=== PATIENT | female | born 1940 | race Caucasian/White ===

== ENCOUNTER → 2017-06-15 | Outpatient (CLI) | payer OTHER ==
[~2017-06-15] MED LIST: ALPR-411 PO; ATEN50TA8 PO; ESTR1.252 PO; FEXO1TAB46 PO; LEVO100T PO; SIMV40TA2 PO
[2017-06-15 12:13] LABS: BASO % 0.4 %; BASO ABS # 0.02 K/uL (0-0.2); COMPLETE YES; HEMATOCRIT 42.1 % (37-47); IG% 0.2 %; LYMPH % 31.1 %; LYMPH ABS # 1.65 K/uL (1.2-3.4); MEAN CELL VOLUME 97.9 fL (80-100); MEAN CORPUSCULAR HEMOGLOBIN 32.3 pg (25-34); MEAN PLATELET VOLUME 10.9 fL (7.4-10.4); MONO % 9.4 %; NEUT % 55.9 %; PLATELET COUNT 258 K/uL (130-400)
[2017-06-15 12:46] LABS: ALT/SGPT 21 U/L (12-78); BLOOD UREA NITROGEN 10 mg/dl (7-18); BUN/CREATININE RATIO 14.3 (10-20); CALCIUM 9.2 mg/dl (8.5-10.1); CARBON DIOXIDE 28 mmol/L (21-32); CHLORIDE 108 mmol/L (98-107); CREATININE 0.67 mg/dl (0.60-1.20); GLUCOSE 82 mg/dl (70-99); SODIUM 140 mmol/L (136-145)
[2017-06-15 12:57] LABS: ALB/GLOB RATIO 0.9 (0.9-2); ALKALINE PHOSPHATASE 56 U/L (45-117); AST/SGOT 19 U/L (15-37)
[2017-06-15 13:01] LABS: LYME DISEASE AB IGG NEG (NEG); LYME DISEASE AB IGM NEG (NEG)
--- NOTE | 2017-07-13 09:23 | CODING QUERY MEDICAL NECESSITY ---
SUPPORTING DIAGNOSIS NEEDED A supporting diagnosis is required for the test/procedure performed on this patient in order for us to be reimbursed by the patient's insurance. Please provide a supporting diagnosis for the following test/procedure listed below next to the test name along with your signature. *If there is no additional diagnosis for this patient that would support the following test/procedure please document that below next to the test/procedure. Test(s)/Procedure(s) that require a supporting diagnosis: * VITAMIN D, 25-HYDROXY DIAGNOSIS: Provider Signature: Date: Thank you Gris Paredes [employer] Once completed, please kindly fax back to [phone] For questions please call [phone]
== END | disposition home or self-care (01) ==
LOC: C.LABPBG 10:32
PROVIDERS: ATTEND Internal Medicine Geriatric Medicine
DX: E03.9 Hypothyroidism, unspecified (principal); R53.83 Other fatigue

== ENCOUNTER → 2017-12-17 | Outpatient (CLI) | payer OTHER ==
[2017-12-17 16:47] LABS: BASO % 0.5 %; BASO ABS # 0.03 K/uL (0-0.2); EOS % 1.8 %; EOS ABS # 0.12 K/uL (0-0.5); HEMATOCRIT 40.2 % (37-47); HEMOGLOBIN 13.6 g/dL (12.0-16.0); LYMPH % 30.4 %; MEAN CELL VOLUME 97.3 fL (80-100); MEAN CORPUSCULAR HEMOGLOBIN 32.9 pg (25-34); MEAN CORPUSCULAR HGB CONC 33.8 g/dl (32-36); MEAN PLATELET VOLUME 11.1 fL (7.4-10.4); MONO % 7.8 %; MONO ABS # 0.51 K/uL (0.11-0.59); NEUT % 59.5 %; NEUT ABS # 3.92 K/uL (1.4-6.5); PLATELET COUNT 270 K/uL (130-400); RED CELL DISTRIBUTION WIDTH SD 45.9 fL (36.4-46.3); WHITE BLOOD COUNT 6.58 K/uL (4.8-10.8)
[2017-12-17 17:34] LABS: BLOOD UREA NITROGEN 13 mg/dl (7-18); CREATININE 0.77 mg/dl (0.60-1.20); GLUCOSE 107 mg/dl (70-99); POTASSIUM 4.1 mmol/L (3.5-5.1); SODIUM 137 mmol/L (136-145)
[2017-12-17 17:35] LABS: CALCIUM 8.6 mg/dl (8.5-10.1); CARBON DIOXIDE 27 mmol/L (21-32)
[2017-12-17 17:45] LABS: CHOLESTEROL 187 mg/dl (0-200); LDL CHOLESTEROL CALCULATED 79 mg/dl
== END | disposition home or self-care (01) ==
LOC: C.LABPBG 11:37
PROVIDERS: ATTEND Internal Medicine Geriatric Medicine
DX: E03.9 Hypothyroidism, unspecified (principal); E78.5 Hyperlipidemia, unspecified; M19.90 Unspecified osteoarthritis, unspecified site; R10.9 Unspecified abdominal pain

== ENCOUNTER → 2018-05-26 | Outpatient (CLI) | payer OTHER | END | disposition home or self-care (01) | LOC: C.LABSPEC 08:13 | PROVIDERS: ATTEND Nurse Practitioner Family | DX: J02.9 Acute pharyngitis, unspecified (principal) ==

== ENCOUNTER 2020-04-25 13:04 | Inpatient (IN) ==
[2020-04-25] MEDS ORDERED: SODIUM CHLORIDE 0.9% 1000ML 1,000 ML IV ONE (13:33)
[2020-04-25] MEDS ORDERED: ONDANSETRON INJ 2 MG/ML 2 ML VIAL IV STA (13:33)
--- NOTE | 2020-04-25 13:41 | Emergency Department Note ---
Impression & Plan Weakness, Diarrhea, Anaplasmosis, Thrombocytopenia ED Provider Note NAME: DUKE MILLAN AGE: 80 SEX: F : 1940 ARRIVES VIA: Walk-In INFORMANT: [Patient][family] ED PROVIDER(S): [Dani Augustine MD] CHIEF COMPLAINT: Weakness, diarrhea HISTORY OF PRESENT ILLNESS: The patient is an 80-year-old female who states that for 2.5 days, she has had diarrhea. She has no appetite. When she eats, everything comes through her like water. The patient states that she has no abdominal pain, she just feels like she does not want to eat. There has been some slight nausea, no vomiting. She has had a low-grade fever. There has been no cough or congestion. No chest pain. No urinary complaints. The patient did have some outpatient lab work through [facility]. She is not sure of the results. She presents to the ED today because she is concerned about dehydration. She states that she did have some pork a few days ago which may have been responsible for her symptoms although, no one else is sick who ate this same meal. REVIEW OF SYSTEMS: See HPI for pertinent positives and negatives. A total of ten systems were reviewed and were otherwise negative. PMHx/PSHx: See Below SOCIAL HISTORY: See Below. PHYSICAL EXAM: GENERAL: Patient is in no acute distress. HEENT: No acute trauma, normocephalic atraumatic, mucous membranes moist, no khari al congestion, no scleral icterus. NECK: No stridor, no adenopathy, no meningismus, trachea is midline. LUNGS: Clear to auscultation bilaterally, somewhat diminished breath sounds on the right, there is no wheezing, no rhonchi, no respiratory distress. HEART: Subtle systolic murmur, regular rate and rhythm. ABDOMEN: Soft, mildly tender in the lower abdomen bilaterally, bowel sounds positive, no hernias, no peritonitis. EXTREMITIES: No cyanosis or edema, full range of motion of all the joints wit hout pain or difficulty, no signs for acute trauma. NEUROLOGIC: Oriented x 3, no acute motor or sensory deficits, no focal weakness. SKIN: No rash, no jaundice, no diaphoresis. DIFFERENTIAL DIAGNOSIS: Appendicitis, infections, foodborne illness, viral illness, diverticulitis, colitis, dehydration, UTI, obstruction, mesenteric ischemia, aortic pathology, inflammatory bowel disease, renal colic, PUD, pancreatitis, biliary pathology, hernia, volvulus, constipation, as well as other pathologies. EMERGENCY DEPARTMENT COURSE/PROCEDURES: ECG: Indication was abdominal pain and weakness. The ECG shows a normal sinus rhythm with a rate of 96. There is no ST elevation, no PVCs. The QTc is 427. Continuous Cardiac Monitoring: An order was placed for continuous cardiac monitoring. The monitor shows a rate of 98 with normal sinus rhythm. MEDICAL DECISION MAKING: There is a lower white blood cell count at 3.77. Hemoglobin is normal. Platelet count was quite low at 36. There was a lower sodium at 130. No kidney failure. There were a few very subtle liver enzyme elevations. The patient did not have pancreatitis by her testing. Urinalysis shows what appears to be contamination. Chest film does not show pneumonia or CHF. There was no free air. Abdominal and pelvis CT does not show diverticulitis or colitis. There was no acute surgical process by CT scan. 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 The patient received IV saline. She was given IV doxycycline. She received IV Zofran. I was able to review some laboratory work which was done as an outpatient yesterday. Her platelet count was 69 yesterday. Lyme testing was equivocal. The patient has diarrhea, she is dehydrated. She feels weak. 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 Given her very low platelet count, given her age, given her diarrhea and difficulty with oral intake, I do think a hospital stay is warranted. IV fluids, IV doxycycline are indicated. She will need her platelet count followed. I did speak to the patient, I talked to the window caser. The on-call hospitalist has been consulted. Past Med/Surg History Medical History Bilateral cataracts (Inactive) Dyslipidemia History of cataract Hypertension (Chronic) Hypothyroidism (Chronic) Insomnia Previously prescribed alprazolam for many years. Working towards taper and alternative treatment Surgical History History of laparoscopy diagnostic History of surgery retropubic urethral suspension History of total abdominal hysterectomy and bilateral salpingo-oophorectomy Hx of section S/P cataract surgery right eye- 05/19/16, left eye- 07/21/16 S/P colonoscopy Social History Smoking Status: Former smoker Hx Alcohol Use: Yes Hx Substance Use: No Preferred Language: Togolese Communication Ability: Effective marital status: / current occupational status: retired Feels Safe at Home: Yes Dental Care, Regularly: Yes Seatbelt Use: always Allergies Allergies Allergy/AdvReac Type Severity Reaction Status Date / Time carrot Allergy Unknown GI UPSET Verified 04/25/20 14:50 chocolate flavor Allergy Unknown RASH Verified 04/25/20 14:50 NSAIDS (Non-Steroidal Allergy Unknown GI BLEED, Verified 04/25/20 14:50 Anti-Inflamma SWELLING, ANAPHYLAXIS Penicillins Allergy Unknown SWELLING, Verified 04/25/20 14:50 RASH azithromycin AdvReac Intermediate Heart Unverified 04/25/20 14:55 palpitations aspirin AdvReac Unknown GI BLEED Verified 04/25/20 14:50 oxycodone AdvReac Unknown "FELT Verified 04/25/20 14:50 THINGS CRAWLING UP MY ARMS" Home Meds Home Medications Medication Instructions Recorded Confirmed cholecalciferol (vitamin D3) 10 400 units PO QAM 05/12/19 04/25/20 mcg (400 unit) capsule coenzyme Q10 10 mg capsule 10 mg PO QAM cap 05/12/19 04/25/20 latanoprost (PF) 0.005 % eye drops 1 drops OPB PM ml 05/12/19 04/25/20 acetaminophen [Tylenol Extra 250 mg PO Q6H PRN 04/25/20 04/25/20 Strength] conjugated estrogens [Premarin] 0.75 mg PO QAM 04/25/20 04/25/20 fexofenadine [Mary Allergy] 180 mg PO DIRECTED PRN 04/25/20 04/25/20 levothyroxine 112 mcg PO QAM 04/25/20 04/25/20 Previous Rx's Medication Instructions Recorded atenolol 50 mg tablet 50 mg PO BID #60 tab 09/22/19 alprazolam 0.5 mg tablet 0.5 mg PO QPM PRN #30 tab 01/03/20 simvastatin 20 mg tablet 20 mg PO QPM #30 tab 04/02/20 Results & Data (ED) Vital Signs Vital Signs - 24 hr 04/25/20 13:13 04/25/20 13:50 04/25/20 14:20 Temperature 37.1 C Temperature Source Oral Pulse Rate 96 H 99 H Pulse Rate [Left Finger] 97 H Pulse Rhythm Regular Pulse Strength Normal Respiratory Rate 18 20 Respiratory Effort / Characteristics Non-Labored Spontaneous Respiratory Depth Normal Respiratory Pattern Regular Blood Pressure 99/63 L Blood Pressure [Left Arm] 134/66 Blood Pressure Mean 75 Blood Pressure Mean [Left Arm] 88 Blood Pressure Position Sitting Pulse Oximetry 95 93 Oxygen Delivery Method Room Air Room Air Sepsis Recent Fever Within 48 Hours No Sepsis New/Unexplained Change in Mental Status No Sepsis Action Taken by Nursing No Action Required 04/25/20 14:30 04/25/20 14:41 04/25/20 14:46 Temperature Temperature Source Pulse Rate 99 H 99 H Pulse Rate [Left Finger] 99 H Pulse Rhythm Pulse Strength Respiratory Rate 20 Respiratory Effort / Characteristics Respiratory Depth Respiratory Pattern Blood Pressure Blood Pressure [Left Arm] 128/75 Blood Pressure Mean Blood Pressure Mean [Left Arm] 92 Blood Pressure Position Pulse Oximetry 90 Oxygen Delivery Method Room Air Sepsis Recent Fever Within 48 Hours Sepsis New/Unexplained Change in Mental Status Sepsis Action Taken by Nursing 04/25/20 15:13 04/25/20 15:21 04/25/20 15:30 Temperature Temperature Source Pulse Rate 99 H 99 H 98 H Pulse Rate [Left Finger] Pulse Rhythm Pulse Strength Respiratory Rate Respiratory Effort / Characteristics Respiratory Depth Respiratory Pattern Blood Pressure Blood Pressure [Left Arm] Blood Pressure Mean Blood Pressure Mean [Left Arm] Blood Pressure Position Pulse Oximetry Oxygen Delivery Method Sepsis Recent Fever Within 48 Hours Sepsis New/Unexplained Change in Mental Status Sepsis Action Taken by Nursing 04/25/20 15:40 04/25/20 15:51 04/25/20 16:00 Temperature Temperature Source Pulse Rate 98 H 97 H 98 H Pulse Rate [Left Finger] Pulse Rhythm Pulse Strength Respiratory Rate 24 Respiratory Effort / Characteristics Respiratory Depth Respiratory Pattern Blood Pressure 141/64 H Blood Pressure [Left Arm] Blood Pressure Mean 90 Blood Pressure Mean [Left Arm] Blood Pressure Position Pulse Oximetry Oxygen Delivery Method Sepsis Recent Fever Within 48 Hours Sepsis New/Unexplained Change in Mental Status Sepsis Action Taken by Nursing 04/25/20 16:10 04/25/20 16:21 Temperature Temperature Source Pulse Rate 100 H 98 H Pulse Rate [Left Finger] Pulse Rhythm Pulse Strength Respiratory Rate 20 17 Respiratory Effort / Characteristics Respiratory Depth Respiratory Pattern Blood Pressure Blood Pressure [Left Arm] Blood Pressure Mean Blood Pressure Mean [Left Arm] Blood Pressure Position Pulse Oximetry Oxygen Delivery Method Sepsis Recent Fever Within 48 Hours Sepsis New/Unexplained Change in Mental Status Sepsis Action Taken by Custodial Medications Current Medication List: was personally reviewed by me Laboratory Data Attestation: I reviewed the patient's lab results. Result diagrams: 04/25/20 13:45 04/25/20 13:45 Lab Results 04/25/20 04/25/20 04/25/20 Range/Units 13:45 13:45 13:45 WBC 3.77 L (4.8-10.8) K/uL RBC 3.79 L (4.2-5.4) M/uL Hgb 12.1 (12.0-16.0) g/dL Hct 34.8 L (37-47) % MCV 91.8 (80-100) fL MCH 31.9 (25-34) pg MCHC 34.8 (32-36) g/dL RDW Std Deviation 50.1 H (36.4-46.3) fL RDW Coeff of Sandra 14.7 H (11.5-14.5) % Plt Count 36 L (130-400) K/uL MPV 11.7 H (7.4-10.4) fL Immature Gran % (Auto) 1.6 % Neut % (Auto) 56.5 % Lymph % (Auto) 28.1 % Preble % (Auto) 11.7 % Eos % (Auto) 0.0 % Baso % (Auto) 2.1 % Neut # (Auto) 2.13 (1.4-6.5) K/uL Lymph # (Auto) 1.06 L (1.2-3.4) K/uL Preble # (Auto) 0.44 (0.11-0.59) K/uL Eos # (Auto) 0.00 (0-0.5) K/uL Baso # (Auto) 0.08 (0-0.2) K/uL Immature Gran # (Auto) 0.06 H (0.00-0.02) K/uL Platelet Estimate Decreased L (Normal) Sodium 130 L (136-145) mmol/L Potassium 4.1 (3.5-5.1) mmol/L Chloride 97 L (98-107) mmol/L Carbon Dioxide 25 (21-32) mmol/L Anion Gap 8.0 (3-11) BUN 26 H (7-18) mg/dl Creatinine 1.06 (0.6-1.2) mg/dl Est Cr Clr Drug Dosing 36.7 ml/min Est GFR ( Amer) 57.0 Est GFR (Non-Af Amer) 49.2 BUN/Creatinine Ratio 24.7 H (10-20) Glucose 137 H (70-99) mg/dl Calcium 8.7 (8.5-10.1) mg/dl Total Bilirubin 1.1 H (0.2-1) mg/dl AST 48 H (15-37) U/L ALT 37 (12-78) U/L Alkaline Phosphatase 51 (45-117) U/L Troponin I < 0.015 (0-0.045) ng/ml Total Protein 6.8 (6.4-8.2) gm/dl Albumin 2.6 L (3.4-5.0) gm/dl Globulin 4.2 H (2.5-4.0) gm/dl Albumin/Globulin Ratio 0.6 L (0.9-2) Lipase 245 (73-393) U/L Urine Color Urine Appearance (Clear) Urine pH (4.5-7.5) Ur Specific Kila (1.000-1.030) Urine Protein (Negative) Urine Glucose (UA) (Negative) Urine Ketones (Negative) Urine Blood (Negative) Urine Nitrite (Negative) Urine Bilirubin (Negative) Urine Urobilinogen (Negative) Ur Leukocyte Esterase (Negative) Urine WBC (Auto) (0-5) /hpf Urine RBC (Auto) (0-4) /hpf U Hyaline Cast (Auto) (0-5) /lpf U Epithel Cells (Auto) (0-5) /lpf Urine Bacteria (Auto) (Negative) Ur Renal Epithelial Cell (0-5) /lpf Granular Casts (0) /lpf Urine Yeast Anaplasma Smear A. phagocytophilum DNA Cancelled Anaplasma Comment 04/25/20 04/25/20 Range/Units 13:45 15:03 WBC (4.8-10.8) K/uL RBC (4.2-5.4) M/uL Hgb (12.0-16.0) g/dL Hct (37-47) % MCV (80-100) fL MCH (25-34) pg MCHC (32-36) g/dL RDW Std Deviation (36.4-46.3) fL RDW Coeff of Sandra (11.5-14.5) % Plt Count (130-400) K/uL MPV (7.4-10.4) fL Immature Gran % (Auto) % Neut % (Auto) % Lymph % (Auto) % Preble % (Auto) % Eos % (Auto) % Baso % (Auto) % Neut # (Auto) (1.4-6.5) K/uL Lymph # (Auto) (1.2-3.4) K/uL Preble # (Auto) (0.11-0.59) K/uL Eos # (Auto) (0-0.5) K/uL Baso # (Auto) (0-0.2) K/uL Immature Gran # (Auto) (0.00-0.02) K/uL Platelet Estimate (Normal) Sodium (136-145) mmol/L Potassium (3.5-5.1) mmol/L Chloride (98-107) mmol/L Carbon Dioxide (21-32) mmol/L Anion Gap (3-11) BUN (7-18) mg/dl Creatinine (0.6-1.2) mg/dl Est Cr Clr Drug Dosing ml/min Est GFR ( Amer) Est GFR (Non-Af Amer) BUN/Creatinine Ratio (10-20) Glucose (70-99) mg/dl Calcium (8.5-10.1) mg/dl Total Bilirubin (0.2-1) mg/dl AST (15-37) U/L ALT (12-78) U/L Alkaline Phosphatase (45-117) U/L Troponin I (0-0.045) ng/ml Total Protein (6.4-8.2) gm/dl Albumin (3.4-5.0) gm/dl Globulin (2.5-4.0) gm/dl Albumin/Globulin Ratio (0.9-2) Lipase (73-393) U/L Urine Color Dark Yellow Urine Appearance Cloudy A (Clear) Urine pH 5.0 (4.5-7.5) Ur Specific Kila 1.027 (1.000-1.030) Urine Protein 2+ H (Negative) Urine Glucose (UA) Negative (Negative) Urine Ketones Trace H (Negative) Urine Blood Trace H (Negative) Urine Nitrite Negative (Negative) Urine Bilirubin Negative (Negative) Urine Urobilinogen Negative (Negative) Ur Leukocyte Esterase Negative (Negative) Urine WBC (Auto) 5-10 H (0-5) /hpf Urine RBC (Auto) 0-4 (0-4) /hpf U Hyaline Cast (Auto) 10-30 H (0-5) /lpf U Epithel Cells (Auto) >30 H (0-5) /lpf Urine Bacteria (Auto) 1+ H (Negative) Ur Renal Epithelial Cell 0-5 (0-5) /lpf Granular Casts 5-10 H (0) /lpf Urine Yeast Not Reportable Anaplasma Smear See Comment A A. phagocytophilum DNA Anaplasma Comment Pos for Anaplasma Administered Medications Doxycycline Hyclate 100 mg/ (Dextrose) 110 mls @ 50 mls/hr IV NOW STA Stop: 04/25/20 18:17 Last Admin: 04/25/20 16:30 Dose: 50 mls/hr Documented by: [id number] Ioversol (Optiray 320 100ml) 94 ml IV ONCE PRN PRN Reason: Interaction Checking Stop: 04/29/20 15:08 Last Admin: 04/25/20 15:10 Dose: 94 ml Documented by: [id number] Discontinued Medications Sodium Chloride (Nss 1000ml) 1,000 mls @ 999 mls/hr IV .Q1H1M ONE Stop: 04/25/20 14:33 Last Infusion: 04/25/20 14:49 Dose: 0 mls/hr Documented by: [id number] Admin: 04/25/20 13:49 Dose: 999 mls/hr Documented by: [id number] Ondansetron HCl (Zofran) 4 mg IV NOW STA Stop: 04/25/20 13:34 Last Admin: 04/25/20 13:49 Dose: 4 mg Documented by: [id number] Imaging Data Radiologist's Impression: SINGLE VIEW CHEST CLINICAL HISTORY: Generalized abdominal pain. FINDINGS: An AP, portable, upright chest radiograph is compared to study dated 08/11/2016 and correlated with chest CT dated 09/30/2016. The examination is degraded by portable technique and patient rotation. The cardiomediastinal silhouette is unremarkable. Chronic interstitial thickening is similar to previous. Airspace opacities are noted at the left lung base. No large pleural effusion or pneumothorax is seen. The skeletal structures are osteopenic. The bony thorax is grossly intact. IMPRESSION: Airspace opacities at the left lung base likely represent atelectasis. Clinical correlation will be required. ABDOMEN AND PELVIS CT WITH IV CONTRAST CT DOSE: 277.54 mGy.cm HISTORY: Acute lower abdominal and pelvic pain poss colitis, or divertic TECHNIQUE: Multiaxial CT images of the abdomen and pelvis were performed following the IV administration of 94 cc of Optiray 320, A dose lowering technique was utilized adhering to the principles of ALARA. COMPARISON STUDY: CT abdomen and pelvis 09/20/2016 FINDINGS: The imaged inferior cardiac chambers are unremarkable. Dependent subsegmental bibasilar atelectasis with subpleural reticulation suggestive of f ibrosis. Bibasilar bronchial wall thickening. No pneumatosis or pneumoperitoneum. The spleen is mildly enlarged, 13.2 cm. Indeterminate 7 mm cystic focus of the pancreatic head, image 184 series 3. Adrenal glands, gallbladder and liver are unremarkable. Patency of the hepatic and portal veins. Mild nonspecific bilateral perinephric stranding. 5 mm hypodensity of the interpolar left kidney is suggestive of a probable cyst. 4 mm hypodensity of the superior pole left kidney is too small to characterize. No ureteral calculi or obstructive uropathy. Venous calcifications are noted in the retroperitoneum and pelvis. Partial distention of the urinary bladder. Hysterectomy. Calcified plaque of the abdominal aorta without aneurysm. No adenopathy. No bowel obstruction or bowel wall thickening. There are a few loops of small bowel air-fluid levels the lower abdomen and pelvis, likely physiologic. Colonic diverticulosis without acute diverticulitis. The appendix is not diagnostically visualized, reportedly absent. No ascites or mesenteric stranding. Tiny fat filled periumbilical hernia. Demineralized appearance of the bones. Degenerative changes of the spine, pelvis and hips. Lumbar levoscoliosis. 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 IMPRESSION: 1. Small bowel air-fluid levels within the abdomen and pelvis are likely physiologic. A mild enteritis could appear similarly 2. No bowel obstruction or bowel wall thickening. 3. Colonic diverticulosis without acute diverticulitis. 4. Additional findings as above. Blood Pressure Blood Pressure Findings: Elevated blood pressure Blood Pressure Disposition: further management by hospitalist Discharge Plan Visit Data Chief Complaint: GI Assessment Stated Complaint: FEVER, DIZZINESS, VOMITING ED Provider: Dani Augustine Discharge Problem: Weakness, Diarrhea, Anaplasmosis, Thrombocytopenia Patient Disposition: Admitted As Inpatient Condition: Fair Forms Stand Alone Forms: [facility] [place] [facility] Prescriptions Prescriptions: No Action atenolol 50 mg tablet 50 mg PO BID Qty: 60 RF: 5 alprazolam 0.5 mg tablet 0.5 mg PO QPM PRN (Reason: anxiety) Qty: 30 RF: 3 simvastatin 20 mg tablet 20 mg PO QPM Qty: 30 RF: 1 coenzyme Q10 [Co Q-10] 10 mg capsule 10 mg PO QAM RF: 0 cholecalciferol (vitamin D3) 400 unit capsule 400 units PO QAM RF: 0 latanoprost (PF) 0.005 % drops 1 drops OPB PM RF: 0 fexofenadine [Mary Allergy] 180 mg tablet 180 mg PO DIRECTED PRN (Reason: allergies) RF: 0 Premarin 1.25 mg tablet 0.75 mg PO QAM RF: 0 levothyroxine 112 mcg capsule 112 mcg PO QAM RF: 0 acetaminophen [Tylenol Extra Strength] 500 mg Tablet 250 mg PO Q6H PRN (Reason: Pain) RF: 0 Referrals Referrals: Chaz Delgado DO [Primary Care Provider] - Discharge Problem: Diarrhea Qualifiers: Diarrhea type: unspecified type Qualified Code(s): R19.7 - Diarrhea, unspecified
--- NOTE | 2020-04-25 14:10 | XRay Report ---
SINGLE VIEW CHEST CLINICAL HISTORY: Generalized abdominal pain. FINDINGS: An AP, portable, upright chest radiograph is compared to study dated 08/11/2016 and correlat ed with chest CT dated 09/30/2016. The examination is degraded by portable technique and patient rota tion. The cardiomediastinal silhouette is unremarkable. Chronic interstitial thickening is similar to previous. Airspace opacities are noted at the left lung base. No large pleural effusion or pneumot horax is seen. The skeletal structures are osteopenic. The bony thorax is grossly intact. IMPRESSION: Airspace opacities at the left lung base likely represent atelectasis. Clinical correlati on will be required. ACT 112: Negative or not required by law. Electronically signed by: Dani Velasquez M.D. 04/25/2020 2:09 PM
[2020-04-25 14:17] LABS: Alanine Aminotransferase 37 U/L (12-78); Albumin Level 2.6 gm/dl (3.4-5.0); Aspartate Aminotransferase 48 U/L (15-37); BUN Creatinine Ratio 24.7 (10-20); Blood Urea Nitrogen 26 mg/dl (7-18); Calcium 8.7 mg/dl (8.5-10.1); Carbon Dioxide 25 mmol/L (21-32); Chloride 97 mmol/L (98-107); Creatinine Clr Calc Pharmacy 36.7 ml/min; Est GFR (Non-African American) 49.2; Glucose 137 mg/dl (70-99); Lipase 245 U/L (73-393); Potassium 4.1 mmol/L (3.5-5.1); Sodium 130 mmol/L (136-145)
[2020-04-25 14:21] LABS: Albumin Globulin Ratio 0.6 (0.9-2); Alkaline Phosphatase 51 U/L (45-117); Bilirubin,Total 1.1 mg/dl (0.2-1); Globulin 4.2 gm/dl (2.5-4.0); Total Protein 6.8 gm/dl (6.4-8.2); Troponin I < 0.015 ng/ml (0-0.045)
[2020-04-25 14:26] LABS: Basophils # (auto) 0.08 K/uL (0-0.2); Basophils % (auto) 2.1 %; Hematocrit (blood only) 34.8 % (37-47); Hemoglobin 12.1 g/dL (12.0-16.0); Immature Granulocytes # (auto) 0.06 K/uL (0.00-0.02); Immature Granulocytes % (auto) 1.6 %; Lymphocytes # (auto) 1.06 K/uL (1.2-3.4); Lymphocytes % (auto) 28.1 %; Mean Corpuscular Hemoglobin 31.9 pg (25-34); Mean Corpuscular Hgb Conc 34.8 g/dL (32-36); Mean Corpuscular Volume 91.8 fL (80-100); Mean Platelet Volume 11.7 fL (7.4-10.4); Monocytes # (auto) 0.44 K/uL (0.11-0.59); Monocytes % (auto) 11.7 %; Neutrophils # (auto) 2.13 K/uL (1.4-6.5); Neutrophils % (auto) 56.5 %; Platelet Count 36 K/uL (130-400); Platelet Estimate Decreased (Normal); RDW Coefficient of Variation 14.7 % (11.5-14.5); RDW Standard Deviation 50.1 fL (36.4-46.3); Red Blood Count 3.79 M/uL (4.2-5.4); White Blood Count 3.77 K/uL (4.8-10.8)
[2020-04-25] MEDS ORDERED: IOVERSOL 100ml IV PRN (15:09)
[2020-04-25 15:14] LABS: Appearance Urine Cloudy (Clear); Bacteria Urine Automated 1+ (Negative); Bilirubin Urine Negative (Negative); Blood Urine Trace (Negative); Color Urine Dark Yellow; Epithelial Cell Urine Auto >30 /lpf (0-5); Glucose Urine UA Negative (Negative); Ketones Urine Trace (Negative); Leukocyte Esterase Urine Negative (Negative); Nitrite Urine Negative (Negative); Protein Urine 2+ (Negative); RBC Urine Automated 0-4 /hpf (0-4); Specific Gravity Urine 1.027 (1.000-1.030); Urobilinogen Urine Negative (Negative)
--- NOTE | 2020-04-25 15:23 | CT Scan Report ---
ABDOMEN AND PELVIS CT WITH IV CONTRAST CT DOSE: 277.54 mGy.cm HISTORY: Acute lower abdominal and pelvic pain poss colitis, or divertic TECHNIQUE: Multiaxial CT images of the abdomen and pelvis were performed following the IV administrat ion of 94 cc of Optiray 320, A dose lowering technique was utilized adhering to the principles of AL NIKKI. COMPARISON STUDY: CT abdomen and pelvis 09/20/2016 FINDINGS: The imaged inferior cardiac chambers are unremarkable. Dependent subsegmental bibasilar ate lectasis with subpleural reticulation suggestive of fibrosis. Bibasilar bronchial wall thickening. No pneumatosis or pneumoperitoneum. The spleen is mildly enlarged, 13.2 cm. Indeterminate 7 mm cystic f ocus of the pancreatic head, image 184 series 3. Adrenal glands, gallbladder and liver are unremarkab le. Patency of the hepatic and portal veins. Mild nonspecific bilateral perinephric stranding. 5 mm hypodensity of the interpolar left kidney is s uggestive of a probable cyst. 4 mm hypodensity of the superior pole left kidney is too small to toña cterize. No ureteral calculi or obstructive uropathy. Venous calcifications are noted in the retroper itoneum and pelvis. Partial distention of the urinary bladder. Hysterectomy. Calcified plaque of the abdominal aorta without aneurysm. No adenopathy. No bowel obstruction or bowel wall thickening. There are a few loops of small bowel air-fluid levels the lower abdomen and pelvis, likely physiologic. Colonic diverticulosis without acute diverticulitis . The appendix is not diagnostically visualized, reportedly absent. No ascites or mesenteric strandin g. Tiny fat filled periumbilical hernia. Demineralized appearance of the bones. Degenerative changes of the spine, pelvis and hips. Lumbar levoscoliosis. Severe osteoarthritis of the left femoral acetab ular joint with prominent subcortical cysts and equivocal avascular necrosis without articular collap se. IMPRESSION: 1. Small bowel air-fluid levels within the abdomen and pelvis are likely physiologic. A mild enteriti s could appear similarly 2. No bowel obstruction or bowel wall thickening. 3. Colonic diverticulosis without acute diverticulitis. 4. Additional findings as above. ACT 112: Negative or not required by law. The above report was generated using voice recognition software. It may contain grammatical, syntax o r spelling errors. Electronically signed by: Leif Duval M.D. 04/25/2020 3:21 PM
[2020-04-25 15:33] LABS: Renal Epithelial Cells Urine 0-5 /lpf (0-5)
[2020-04-25] MEDS ORDERED: DOXYCYCLINE HYCLATE 100 MG in DEXTROSE 5% 100 ML IV STA (16:06)
[2020-04-25 16:08] LABS: Anaplasmosis Smear(Rpt to DOH) Pos for Anaplasma
--- NOTE | 2020-04-25 17:52 | History & Physical Report ---
Date of Service April 25, 2020 Assessment & Plan (1) Anaplasmosis: Positive Anaplasma smear Continue IV doxycycline 100 mg twice daily, can likely switch to p.o. tomorrow if tolerating eating well Retest for lyme Abx as suspect this caused her original fevers although would not manager change may give patient better expectation on recovery (much increased risk of longer term symptoms with lyme) (2) Diarrhea: No need to test for C. difficile given enteritis noted on CT without colitis Stool culture pending although suspect this is due to anaplasmosis as above. (3) Thrombocytopenia: secondary to anaplasmosis as above. Trend CBC, no specific treatment at this time but need for monitor for bleeding (4) Hypothyroidism: TSH with AM labs Continue levothyroxine 112 mcg PO daily (5) Hypertension: Continue atenolol - she missed her dose this morning which may explain her HR and hypertension currently. Restart usual atenolol dosing tonight (6) DVT prophylaxis: No chemical prophylaxis due to thrombocytopenia SCDs Admission and Anticipated Discharge Date Admission Date: 04/25/2020 Anticipated date of discharge: 04/27/20 History of Present Illness Chief Complaint: Fevers, chills, myalgias Primary Care Provider: Chaz Delgado DO Sierra Pérez is an 80 year old female who presents to the ER with fevers, chills, myalgias, fatigue and generalized myalgias. Initially she had similar symptoms which lasted for 5 days 3 weeks ago but without any URI symptoms or diarrhea. On the she went to [facility] through in [place] and had a lyme test which she tells me was negative. She never developed any rashes. COVID-19 testing was negative. Her symptoms gradually improved over 5 days although she remained very fatigued and was generally weak. 3 days ago her fevers returned and she started having diarrhea with some watery stools. In the ER here she was thrombocytopenic and had elevated AST and was appropriately suspected to have anaplasmosis with a subsequently positive smear for anaplasmosis. Started on IV doxycycline. Given degree of thrombocytopenia, concern for PO absorption with diarrhea and patient not having adequate oral intake she was referred to the medicine team for admission. Allergies Allergy/AdvReac Type Severity Reaction Status Date / Time carrot Allergy Unknown GI UPSET Verified 04/25/20 14:50 chocolate flavor Allergy Unknown RASH Verified 04/25/20 14:50 NSAIDS (Non-Steroidal Allergy Unknown GI BLEED, Verified 04/25/20 14:50 Anti-Inflamma SWELLING, ANAPHYLAXIS Penicillins Allergy Unknown SWELLING, Verified 04/25/20 14:50 RASH azithromycin AdvReac Intermediate Heart Unverified 04/25/20 14:55 palpitations aspirin AdvReac Unknown GI BLEED Verified 04/25/20 14:50 oxycodone AdvReac Unknown "FELT Verified 04/25/20 14:50 THINGS CRAWLING UP MY ARMS" Home Medications Home Medications Medication Instructions Recorded Confirmed Type cholecalciferol (vitamin D3) 10 400 units PO QAM 05/12/19 04/25/20 History mcg (400 unit) capsule coenzyme Q10 10 mg capsule 10 mg PO QAM cap 05/12/19 04/25/20 History latanoprost (PF) 0.005 % eye drops 1 drops OPB PM ml 05/12/19 04/25/20 History atenolol 50 mg tablet 50 mg PO BID #60 tab 09/22/19 04/25/20 Rx alprazolam 0.5 mg tablet 0.5 mg PO QPM PRN #30 tab 01/03/20 04/25/20 Rx simvastatin 20 mg tablet 20 mg PO QPM #30 tab 04/02/20 04/25/20 Rx acetaminophen [Tylenol Extra 250 mg PO Q6H PRN 04/25/20 04/25/20 History Strength] conjugated estrogens [Premarin] 0.75 mg PO QAM 04/25/20 04/25/20 History fexofenadine [Mary Allergy] 180 mg PO DIRECTED PRN 04/25/20 04/25/20 History levothyroxine 112 mcg PO QAM 04/25/20 04/25/20 History Past Med/Surg History Medical History Bilateral cataracts (Inactive) Dyslipidemia History of cataract Hypertension (Chronic) Hypothyroidism (Chronic) Insomnia Previously prescribed alprazolam for many years. Working towards taper and alternative treatment Surgical History History of laparoscopy diagnostic History of surgery retropubic urethral suspension History of total abdominal hysterectomy and bilateral salpingo-oophorectomy Hx of section S/P cataract surgery right eye- 05/19/16, left eye- 07/21/16 S/P colonoscopy Social History Smoking Status: Never smoker Hx Alcohol Use: No Hx Substance Use: No Preferred Language: Martiniquais Communication Ability: Effective Patient Services Representative Required: No Beliefs That Will Affect Care: Scientology Scientology Beliefs: Zoroastrian marital status: / Current Living Situation: Family Current Living Situation Comment: son is living with her at this time current occupational status: retired Other Information That Helps Us Care for You: No Feels Safe at Home: Yes Safety Concerns: Feels Safe At This Time Dental Care, Regularly: Yes Seatbelt Use: always Review of Systems Review of Systems: All systems reviewed & are unremarkable except as noted in HPI & below Physical Exam Constitutional: well developed and + frail appearing; + not well nourished and no acute distress Eyes: PERRL, conjunctivae normal, anicteric sclerae ENMT: external ear and nose normal, oropharynx normal Neck: trachea midline, no thyromegaly Respiratory: normal respiratory effort, lungs clear to auscultation Cardiovascular: Rate/Rhythm: regular rhythm and + tachycardic Heart Sounds: no murmur Extremities: normal capillary refill; no calf tenderness and no pedal edema Gastrointestinal (Abdomen): normal bowel sounds, soft, nontender, no hepatosplenomegaly Musculoskeletal: no cyanosis or clubbing, extremities motor strength 5/5 Skin: no rashes, warm and dry Neurologic: moves all extremities and awake; not confused Psychiatric: A+Ox3, euthymic affect Genitourinary: no CVA tenderness Lymphatic: no cervical or axillary lymphadenopathy Results & Data Results & Data ([facility]) Vital Signs (Past 12 Hours) Vital Signs Temp Pulse Pulse Resp BP BP Pulse Ox 04/25/20 16:21 98 H 17 04/25/20 16:10 100 H 20 04/25/20 16:00 98 H 24 141/64 H 04/25/20 15:51 97 H 04/25/20 15:40 98 H 04/25/20 15:30 98 H 04/25/20 15:21 99 H 04/25/20 15:13 99 H 04/25/20 14:46 99 H 20 128/75 90 04/25/20 14:41 99 H 04/25/20 14:30 99 H 04/25/20 14:20 99 H 04/25/20 13:50 97 H 20 134/66 93 04/25/20 13:13 37.1 C 96 H 18 99/63 L 95 Diagnostic Findings SINGLE VIEW CHEST IMPRESSION: Airspace opacities at the left lung base likely represent atelectasis. Clinical correlation will be required. ECG Indication: other Rate (beats per minute): 96 Rhythm: normal sinus Comparison ECG Date: from (09/20/2016) Change: no significant change Code Status & VTE Plan Code Status Full VTE Prophylaxis Plan VTE Prophylaxis will be ordered: Yes Reason for no VTE drug order: Contraindicated PG Care Time/CCT Total # of Minutes Spent Total Time Spent with Patient: Total time spent is greater than 50% in coordination of care (as documented) at patient's floor/unit and/or counseling patient: Coding Level of Care Code 14242 Initial Inpt Care Lvl 3 Diagnoses Anaplasmosis A77.49 Diarrhea R19.7 Diarrhea type: unspecified type Thrombocytopenia D69.6 Hypothyroidism E03.9 Hypertension I10 DVT prophylaxis Z29.9 (1) Diarrhea Diarrhea type: unspecified type Qualified Code(s): R19.7 - Diarrhea, unspecified
[2020-04-25] MEDS ORDERED: ACETAMINOPHEN 500 MG TAB PO PRN (19:18)
[2020-04-25] MEDS ORDERED: ALPRAZolam 0.25 MG TABLET PO PRN (19:18)
[2020-04-25] MEDS ORDERED: FEXOFENADINE HCL 180 MG TAB PO PRN (19:18)
[2020-04-25] MEDS: ACETAMINOPHEN 325 MG TAB PO PRN (19:53)
[2020-04-25] MEDS: SODIUM CHLORIDE 0.9% 1000ML 1,000 ML IV SCH (19:54)
[2020-04-25] MEDS: ATENOLOL 50 MG TABLET PO SCH (20:14)
[2020-04-25] MEDS: LATANOPROST 0.005% OP SOLN 2.5 ML BTL OPB SCH (20:14)
[2020-04-25 20:53] LABS: Lyme Ab IgG w/WB Rflx Negative (Negative)
[2020-04-25] MEDS ORDERED: SIMVASTATIN 20 MG TAB PO SCH (21:00)
[2020-04-25] MEDS ORDERED: LATANOPROST 0.005% OP SOLN 2.5 ML BTL OPB SCH (21:00)
[2020-04-25 21:13] LABS: Lyme Ab IgM w/WB Rflx Positive (Negative)
--- NOTE | 2020-04-25 23:23 | Electrocardiogram Report ---
Test Reason : Blood Pressure : / mmHG Vent. Rate : 096 BPM Atrial Rate : 096 BPM P-R Int : 168 ms QRS Dur : 082 ms QT Int : 338 ms P-R-T Axes : 022 038 033 degrees QTc Int : 427 ms Normal sinus rhythm Normal ECG When compared with ECG of 20-SEP-2016 11:36, No significant change was found Confirmed by Rajendra Valero ([id number]) on 04/25/2020 11:23:24 PM Referred By: REFERRED SELF Confirmed By:Rajendra Valero
[2020-04-26] MEDS ORDERED: DOXYCYCLINE HYCLATE 100 MG in DEXTROSE 5% 100 ML IV SCH (04:00)
[2020-04-26] MEDS: SODIUM CHLORIDE 0.9% 1000ML 1,000 ML IV SCH ×2 (05:15→15:24)
[2020-04-26 06:31] LABS: Prothrombin Time 10.8 Seconds (9.0-12.0)
[2020-04-26 06:39] LABS: Hematocrit (blood only) 31.3 % (37-47); Hemoglobin 10.8 g/dL (12.0-16.0); Mean Corpuscular Hemoglobin 31.7 pg (25-34); Mean Corpuscular Hgb Conc 34.5 g/dL (32-36); Mean Corpuscular Volume 91.8 fL (80-100); Mean Platelet Volume 12.9 fL (7.4-10.4); Platelet Count 39 K/uL (130-400); RDW Coefficient of Variation 14.8 % (11.5-14.5); RDW Standard Deviation 50.1 fL (36.4-46.3); Red Blood Count 3.41 M/uL (4.2-5.4); White Blood Count 4.33 K/uL (4.8-10.8)
[2020-04-26 07:08] LABS: Albumin Level 2.1 gm/dl (3.4-5.0); BUN Creatinine Ratio 26.1 (10-20); Calcium 7.6 mg/dl (8.5-10.1); Creatinine Clr Calc Pharmacy 56.4 ml/min; Est GFR (African American) 94.6; Est GFR (Non-African American) 81.6; Potassium 3.4 mmol/L (3.5-5.1)
[2020-04-26 07:53] LABS: ALC (manual) 3.03 K/uL (1.2-3.4); ANC (manual) 1.21 K/uL (1.4-6.5); Basophils # (manual) 0.04 K/uL (0-0.2); Lymphocytes # (manual) 0.87 K/uL (1.2-3.4); Monocytes # (manual) 0.04 K/uL (0.11-0.59); Neutrophils # (manual) 1.21 K/uL (1.4-6.5); RBC Morphology Unremarkable; Reactive Lymphocytes # (manual) 2.17 K/uL
[2020-04-26 08:22] LABS: Albumin Globulin Ratio 0.6 (0.9-2); Bilirubin,Total 0.8 mg/dl (0.2-1); Globulin 3.4 gm/dl (2.5-4.0); Total Protein 5.5 gm/dl (6.4-8.2)
[2020-04-26] MEDS: ESTROGENS, CONJUGATED 0.625 MG TAB PO SCH (08:53)
[2020-04-26] MEDS: CHOLECALCIFEROL 1,000 UNITS 25 MCG TAB PO SCH (08:54)
[2020-04-26] MEDS: ATENOLOL 50 MG TABLET PO SCH ×3 (08:54→20:40)
[2020-04-26] MEDS ORDERED: NON-FORMULARY MEDICATION (Coenzyme Q10 [Co Q-10] 10 MG) PO SCH (09:00)
--- NOTE | 2020-04-26 18:20 | Hospitalist Progress Note ---
Date of Service April 26, 2020 Assessment & Plan (1) Anaplasmosis: Positive Anaplasma smear and clinical picture fits fairly well -continue doxy - showing improvement (2) Diarrhea: No need to test for C. difficile given enteritis noted on CT without colitis Stool culture pending although suspect this is due to anaplasmosis as above. is improving (3) Thrombocytopenia: pancytopenia --> appears acute, almost certainly related to anaplasmosis. will want to follow back to normal as outpt (4) Hypothyroidism: TSH with AM labs Continue levothyroxine 112 mcg PO daily (5) Hypertension: Continue atenolol to avoid any rebound tachy, suspect she's a little dry as far as mobtd-xxyx-vem-runs BP and lightheaded/woozy (6) DVT prophylaxis: No chemical prophylaxis due to thrombocytopenia SCDs Admission and Anticipated Discharge Date Admission Date: April 25, 2020 Subjective seen twice - this AM feeling a little better still low grade fever feeling ate a little - better than before though. woozy/lightheaded on stadning - notes BP lower than she normally runs later revisited - feeling still woozy a little weak not yet well enough to go home and feel safe, but better. was pleased that she had ipmroved to eating well as far as GI sx. Review of Systems Review of Systems: All systems reviewed & are unremarkable except as noted in HPI & below Physical Exam Physical Exam: gen aao pleasant nad heent nc at mmm breathing unlabored no accessory muscles good effort skin no rashes no pallor or icterus neuro no focal deficits. Results & Data Results & Data ([facility]) Vital Signs (Past 12 Hours) Vital Signs Temp Pulse Pulse Resp BP Pulse Ox 04/26/20 15:35 84 04/26/20 15:12 97.5 F L 82 16 133/78 94 04/26/20 07:33 97.5 F L 65 18 102/62 94 04/26/20 07:23 64 PG Care Time/CCT Total # of Minutes Spent Total Time Spent with Patient: Total time spent is greater than 50% in coordination of care (as documented) at patient's floor/unit and/or counseling patient: Coding Level of Care Code 68312 Subseq Hosp Care Lvl 3 Diagnoses Anaplasmosis A77.49 Diarrhea R19.7 Diarrhea type: unspecified type Thrombocytopenia D69.6 Hypothyroidism E03.9 Hypertension I10 DVT prophylaxis Z29.9 (1) Diarrhea Diarrhea type: unspecified type Qualified Code(s): R19.7 - Diarrhea, unspecified
[2020-04-26] MEDS ORDERED: POTASSIUM CHLORIDE 20 MEQ TABCR PO STA (18:21)
[2020-04-26] MEDS: LATANOPROST 0.005% OP SOLN 2.5 ML BTL OPB SCH (20:41)
[2020-04-26] MEDS ORDERED: SIMVASTATIN 40 MG TAB PO SCH (21:00)
[2020-04-26] MEDS ORDERED: DOXYCYCLINE HYCLATE 100 MG CAP PO SCH (21:00)
--- NOTE | 2020-04-26 21:01 | Communication Note ---
Date of Service: April 26, 2020 Notified by nursing pt was having what appeared to be facial swelling. No signs of anaphylaxis and no itching. Question of whether reaction to doxycycline? Last dose about 3:30pm today. Next dose scheduled for 9AM tomorrow. Advised primary team will determine whether to hold or continue medication in the AM. 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
[2020-04-26] MEDS: ACETAMINOPHEN 325 MG TAB PO PRN (23:33)
[2020-04-27] MEDS: SODIUM CHLORIDE 0.9% 1000ML 1,000 ML IV SCH ×2 (01:19→10:19)
[2020-04-27] MEDS ORDERED: LEVOTHYROXINE SODIUM 112 MCG TABLET PO SCH (06:30)
[2020-04-27] MEDS: CHOLECALCIFEROL 1,000 UNITS 25 MCG TAB PO SCH (08:14)
[2020-04-27] MEDS: ATENOLOL 50 MG TABLET PO SCH (08:14)
[2020-04-27] MEDS: ESTROGENS, CONJUGATED 0.625 MG TAB PO SCH (08:15)
[2020-04-27] MEDS ORDERED: POTASSIUM CHLORIDE 20 MEQ TABCR PO ONE (08:30)
[2020-04-27] MEDS ORDERED: DOXYCYCLINE HYCLATE 100 MG CAP PO SCH (09:00)
[2020-04-27 10:43] LABS: Hematocrit (blood only) 35.3 % (37-47); Hemoglobin 11.9 g/dL (12.0-16.0); Mean Corpuscular Hemoglobin 31.5 pg (25-34); Mean Corpuscular Hgb Conc 33.7 g/dL (32-36); Mean Corpuscular Volume 93.4 fL (80-100); Mean Platelet Volume 12.4 fL (7.4-10.4); Platelet Count 76 K/uL (130-400); RDW Coefficient of Variation 14.9 % (11.5-14.5); RDW Standard Deviation 50.5 fL (36.4-46.3); Red Blood Count 3.78 M/uL (4.2-5.4); White Blood Count 6.86 K/uL (4.8-10.8)
[2020-04-27 10:59] LABS: BUN Creatinine Ratio 19.3 (10-20); Calcium 7.6 mg/dl (8.5-10.1); Creatinine Clr Calc Pharmacy 53.3 ml/min; Est GFR (African American) 89.5; Est GFR (Non-African American) 77.2; Potassium 3.4 mmol/L (3.5-5.1)
[2020-04-27 11:31] LABS: ALC (manual) 4.97 K/uL (1.2-3.4); ANC (manual) 1.58 K/uL (1.4-6.5); Basophils # (manual) 0.06 K/uL (0-0.2); Basophils % (manual) 0.9 %; Eosinophils # (manual) 0.06 K/uL (0-0.5); Eosinophils % (manual) 0.9 %; Giant Platelets 2+; Lymphocytes # (manual) 0.97 K/uL (1.2-3.4); Lymphocytes % (manual) 14.2 %; Metamyelocytes # (manual) 0.06 K/uL (0-0); Metamyelocytes % (manual) 0.9 %; Monocytes # (manual) 0.12 K/uL (0.11-0.59); Monocytes % (manual) 1.8 %; Neutrophils # (manual) 1.58 K/uL (1.4-6.5); Reactive Lymphocytes % (manual) 58.3 %
--- NOTE | 2020-04-27 17:38 | Discharge Summary ---
Date of Service April 27, 2020 Admission HPI Per Admitting Provider Sierra Pérez is an 80 year old female who presents to the ER with fevers, chills, myalgias, fatigue and generalized myalgias. Initially she had similar symptoms which lasted for 5 days 3 weeks ago but without any URI symptoms or diarrhea. On the she went to [facility] [employer] through in [place] and had a lyme test which she tells me was negative. She never developed any rashes. COVID-19 testing was negative. Her symptoms gradually improved over 5 days although she remained very fatigued and was generally weak. 3 days ago her fevers returned and she started having diarrhea with some watery stools. In the ER here she was thrombocytopenic and had elevated AST and was appropriately suspected to have anaplasmosis with a subsequently positive smear for anaplasmosis. Started on IV doxycycline. Given degree of thrombocytopenia, concern for PO absorption with diarrhea and patient not having adequate oral intake she was referred to the medicine team for admission. Principal Diagnosis anaplasmosis Discharge Exam gen aao pleasant nad heent nc at mmm no facial rash/erythema/edema. EOMI. no tongue or lip swelling noted. mmm. breathing unlabored no accessory muscles good effort skin no rashes no pallor or icterus neuro no focal deficits Discharge Data Allergies Allergy/AdvReac Type Severity Reaction Status Date / Time carrot Allergy Unknown GI UPSET Verified 04/25/20 14:50 chocolate flavor Allergy Unknown RASH Verified 04/25/20 14:50 NSAIDS (Non-Steroidal Allergy Unknown GI BLEED, Verified 04/25/20 14:50 Anti-Inflamma SWELLING, ANAPHYLAXIS Penicillins Allergy Unknown SWELLING, Verified 04/25/20 14:50 RASH azithromycin AdvReac Intermediate Heart Unverified 04/25/20 14:55 palpitations aspirin AdvReac Unknown GI BLEED Verified 04/25/20 14:50 oxycodone AdvReac Unknown "FELT Verified 04/25/20 14:50 THINGS CRAWLING UP MY ARMS" Consultations 04/25/20 16:17 ED Decision to Admit Stat Ordered Studies 04/25/20 13:33 CT abd pelvis IV con only Stat Hospital Course (1) Anaplasmosis: Positive Anaplasma smear and clinical picture fits fairly well -improving nicely on doxy - continue. last night she had a concern about ?reaction w eye swelling - was evaluated by overnight resident without any concern on allergic reaction - after discussions we gave another dose of doxy here without reaction - so stable for PO doxy -will treat for 14 days since anaplasmosis, concern on possibly concomittant lyme (igm positive although could be false positive) and sick enough to warrant hospitalization -see discharge instructions for further detail (2) Diarrhea: No need to test for C. difficile given enteritis noted on CT without colitis Stool culture still pending but with diarrhea improving highly doubt will show anything dehydration - probably part from diarrhea, part from physiologic stress from anaplasmosis itself. imporved w IVF, safe for PO hydration at home. (3) Thrombocytopenia: pancytopenia --> appears acute, almost certainly related to anaplasmosis. will want to follow back to normal as outpt (next labs ~early to mid week) (4) Hypothyroidism: TSH 2.99 Continue levothyroxine 112 mcg PO daily (5) Hypertension: home on home meds (6) DVT prophylaxis: No chemical prophylaxis due to thrombocytopenia SCDs Total Time Total Time Spent Total Time Spent (In Minutes): >30 Discharge Plan Discharge Items Patient Disposition: Home - Self-Care Reason For Visit: ANAPLASMOSIS,THROMBOCYTOPENIA Discharge Diagnosis: anaplasmosis Condition on Discharge: Fair Activity: Resume your previous activity Activity Comment: see below in "additional instructions" Non-emergency contact: Primary Care Provider Call non-emergency contact if: you have any medication questions, your symptoms worsen and your temperature is above 101 Follow-up/Referrals: Chaz Delgado DO [Primary Care Provider] - Diet: Regular Addtl Attending Provider Instructions: anaplasmosis -the main illness making you sick was a tick-borne infection called anaplasmosis. -"lyme's angry cousin," anaplasmosis is another small bacteria that gets into your system from a tick bite, and can easily account for how lousy you were feeling - typically it causes fevers, body aches, and a lot of lab abnormalities; while it doesn't always cause GI symptoms what you were experiencing can easily be anaplasmosis related -as we discussed, your lyme screening test did also suggest you may have lyme at the same time (it happens, some ticks are "nice enough" to give people both), although at the same time, inflammatory infections like anaplasmosis can also "trip" the screening for lyme as a false positive. they send out samples that have a positive screening for lyme and check for confirmatory antibodies - that typically takes a week or so to get results -the good news, however, is that both lyme and anaplasmosis are easily (and successfully) treated with doxycycline. -typically we'll treat with 100mg twice a day for 10-14 days -- when people are sick enough to end up in the hospital, i'll usually favor the longer end of the spectrum and treat for a full 2 weeks -most of the time doxycycline is really well tolerated. it can sometimes cause an upset stomach (so take it with food), and in an odd way, it causes a small but significant percentage of people to become really sun sensitive while they're on it. in that respect, i recommend that while you're on the doxy, wear sunscreen and protective clothing as though you're at the beach -we'll ask that Dr Delgado check follow up labwork (CBC, CMP) around Wednesday or Wednesday to ensure your labs are heading the right way, and then as long as they are, one more time a few weeks later to ensure they've totally normalized (they basically always do, but as docs we usually "indulge paranoia" that way, so that we see that everything has returned to normal) -while ticks are ubiquitous in [facility], and tick borne illnesses are VERY common, a reasonable tool to cut down on infections at least some is to do a daily tick check. since most (not all, but most) tick borne infections don't really occur unless the tick has been on for ~24-36 hours, if you look yourself over head-to-toe once a day, you're reasonably likely to come across a tick if one has gotten on you. (as you wisely pointed out, they're prone to get into hard to see places as well, but figuring that you'll catch most of them, it does cut down on the overall chances of getting something like this again) -"COVID season" notwithstanding, a reasonable rule of thumb in [facility] is that if you have a fever and there's not snow on the ground, start with "could this be a tick borne illness" until proven otherwise, and then they're harder to miss. (they're nonspecific enough in the symptoms they cause that it's easy to not know what's going on -- but usually if you have a lot of suspicion then looking in the right direction with symptoms and labwork, it gets figured out far more quickly (not always the actual test for the disease, more often the labs that show "telltale signs")) keeping hydrated -if you pay attention to how much you're actually drinking, it can be easy to stay well hydrated. if not, it's much harder -- as Americans in general, we do a fairly poor job of drinking enough culturally; further, when we get into our 70's and 80's the hormones that make us feel thirsty start to fade and so sometimes staying hydrated is more a cognitive exercise than a placation of thirst. -not being outside or in the heat, somewhere around 60-70 ounces a day should be enough; if you're outside doing yardwork or walking, it can be really hard to determine how much extra to add in, but another ~8-12 ounces per hour of activity is a reasonable guess -for the next few weeks, just keep a notepad of what you drink and add it up - if you're hitting 60-70 ounces on the day, then you're doing what you need to in order to stay hydrated fatigue/increasing activity -as we discussed, these kinds of illnesses can really make people feel beat up. long after the fevers and chills are gone, long after the GI symptoms have resolved, long after you're off the antibiotics, it is still quite common to feel a nonspecific fatigue (sometimes just like "everything is uphill.") -- this takes a while to go away. it would be reasonable to set Labor Day as your "good as new target." however, you should see slow progress towards better. rather than measuring it day-to-day, maybe look back in 3-4 day increments, and in doing this, you'll likely see your progress and be able to see how you're doing better. if you at all see that you're getting worse, or if it becomes clear that you've gone a week without any real meaningful progress, then it would definitely be time to seek evaluation (starting with dr delgado) -gradually increase activity. find "the ceiling" of what feels like too much, and while you shouldn't exceed it, we would want you to push towards that limit every day. for instance, if a half-mile walk feels like the ceiling tomorrow then don't push it, but by mid week, you'd hopefully be going 0.75 miles, and so on. likewise, it's reasonable to take the week off with yardwork, but then by next week maybe do 1/4 of what you'd normally do and gradually increase from t here. Stand-Alone Forms: My [facility], Smoking Cessation Medications and DC Order Prescriptions: New doxycycline hyclate 100 mg Capsule 100 mg PO BID Qty: 25 RF: 0 Continued atenolol 50 mg tablet 50 mg PO BID Qty: 60 RF: 5 alprazolam 0.5 mg tablet 0.5 mg PO QPM PRN (Reason: anxiety) Qty: 30 RF: 3 simvastatin 20 mg tablet 20 mg PO QPM Qty: 30 RF: 1 coenzyme Q10 [Co Q-10] 10 mg capsule 10 mg PO QAM RF: 0 cholecalciferol (vitamin D3) 400 unit capsule 400 units PO QAM RF: 0 latanoprost (PF) 0.005 % drops 1 drops OPB PM RF: 0 fexofenadine [Mary Allergy] 180 mg tablet 180 mg PO DIRECTED PRN (Reason: allergies) RF: 0 Premarin 1.25 mg tablet 0.75 mg PO QAM RF: 0 levothyroxine 112 mcg capsule 112 mcg PO QAM RF: 0 acetaminophen [Tylenol Extra Strength] 500 mg Tablet 250 mg PO Q6H PRN (Reason: Pain) RF: 0 Discharge Orders: Discharge Order (Routine); Ordered 04/27/20 Ordered By: Mo Licona Admission Data Admit Date/Time: 04/25/20 17:29 Attending Provider: Mo Licona Admit Provider: Reno Parks Primary Care Provider: Chaz Delgado Other Providers: Reno Parks Other Interventions: Discharge Summary Assessment (RN) Last Done: 04/27/20 14:45 DC Date/Time DO NOT enter until pt leaves facility: 04/27/20 16:46 Coding Level of Care Code D/C Day Management >30 mins Diagnoses Anaplasmosis A77.49 Diarrhea R19.7 Diarrhea type: unspecified type Thrombocytopenia D69.6 Hypothyroidism E03.9 Hypertension I10 DVT prophylaxis Z29.9
[2020-04-30 08:19] LABS: 18KDIGG Band NON-REACTIVE; 23KDIGG Band REACTIVE; 23KDIGM Band REACTIVE; 28KDIGG Band NON-REACTIVE; 30KDIGG Band NON-REACTIVE; 39KDIGG Band NON-REACTIVE; 39KDIGM Band REACTIVE; 41KDIGG Band NON-REACTIVE; 41KDIGM Band NON-REACTIVE; 45KDIGG Band NON-REACTIVE; 58KDIGG Band NON-REACTIVE; 66KDIGG Band NON-REACTIVE; 93KDIGG Band REACTIVE; Lyme Antibodies, WB IgG NEGATIVE (NEGATIVE); Lyme Antibodies, WB IgM POSITIVE (NEGATIVE)
== END 2020-04-27 16:46 | disposition home or self-care (01) | DRG 868 ==
LOC: ED 13:04 → 2N 17:29 → SUATTDRO 17:29 → 2N 18:42